=== PATIENT | female | born 1945 | race African-American/Black ===

== ENCOUNTER 2019-02-07 17:00 | Emergency (ER) | payer OTHER ==
[~2019-02-07] VITALS: Ht 170.2 cm; Wt 95.3 kg
[~2019-02-07 17:00] MED LIST: APAP500 PO; ASPIRIN325 PO; AUGMENTIN 875875 M1 PO; CARVEDILOL25 MG PO; CIPROFLOXACIN500 M1 PO; COLACE100 MG PO; COZAAR 50 MG TA50 M1 PO; DITROPAN XL10 MG PO; EFFIENT10 MG PO; ESTRACE1 MG PO; ESTRACE2 MG PO; GLUCOPHAGE500 MG PO; HYDROCHLOROTHIA25 M1 PO; HYDROCODON-ACE1 EAC7 PO; LANTUS SQ; MOBIC15 MG PO; MOBIC7.5 M1 PO; NEURONTIN 300300 M1 PO; OXYBUTYNIN CHLO10 MG PO; PRILOSEC 20 MG20 MG PO; PRILOSEC40 MG PO; SIMVASTATIN40 MG PO; SLOW FE 160MG160 MG PO; TYLENOL EX-STR500 M2 PO; VALIUM2 MG PO; VALSARTAN160 MG PO
[2019-02-07] MEDS ORDERED: NAPROSYN500 MG PO (18:34)
[2019-02-07 18:39] VITALS: BP 201/95
== END 2019-02-07 18:57 | disposition home or self-care (01) ==
LOC: ER 17:00
DX: S80.01XA Contusion of right knee, initial encounter (principal); Z23 Encounter for immunization; E11.9 Type 2 diabetes mellitus without complications; K21.9 Gastro-esophageal reflux disease without esophagitis; I10 Essential (primary) hypertension; E78.00 Pure hypercholesterolemia, unspecified; Z90.710 Acquired absence of both cervix and uterus; Z90.49 Acquired absence of other specified parts of digestive tract; W01.0XXA Fall on same level from slipping, tripping and stumbling without subsequent striking against object, initial encounter; Y93.89 Activity, other specified; Y92.098 Other place in other non-institutional residence as the place of occurrence of the external cause; Y99.8 Other external cause status

== ENCOUNTER → 2019-02-18 | Outpatient (CLI) | payer OTHER ==
[~2019-02-18] MED LIST changes: +NAPROSYN500 MG PO
--- NOTE | 2019-02-18 14:49 | EKG ---
[place] [address] [facility] [place] [place] [address] ELECTROCARDIOGRAM REPORT Name: LUCIANA MARINELLI Room #: REG CLARA Carrera#: [id number] ������������������ Admission: 02/18/19 ������������������ Attend Phys: BONNIE Chapman Discharge: ������������������ Date of : 41 Report #: [id number] ����������������������������������������������������������������� [id number] THIS REPORT FOR: //name// [facility] Test Date: 2019-02-18 Test Time: 12:23:29 Pat Name: LUCIANA MARINELLI Department: Room: Gender: F Cube Cutter: Compa FORD : 1945 Requested By: Annelise Don Order Number: [id number] MD: Lenard Coronado Measurements Intervals [place] Rate: 74 P: 63 PA: 187 QRS: 4 QRSD: 96 T: 99 QT: 384 QTc: 426 Interpretive Statements Sinus rhythm Anterior infarct, old Nonspecific T abnormalities, lateral leads Compared to ECG 11/05/2013 07:38:20 Myocardial infarct finding now present T-wave abnormality now present Left ventricular hypertrophy no longer present Early repolarization no longer present Electronically Signed On 02-18-2019 14:48:49 CDT by Lenard Coronado [email or web address] ��������������������������������������������� <ELECTRONICALLY SIGNED> ���������������������������������������� By: Lenard Coronado MD ��������������������������������������������� 02/18/19 1448 1223 1223 Lenard Coronado MD /EPI
== END ==
LOC: CV 08:39 → SEN 08:39
DX: I10 Essential (primary) hypertension (principal)

== ENCOUNTER → 2019-03-04 | Outpatient (CLI) | payer OTHER | LOC: SEN 10:15 | DX: I10 Essential (primary) hypertension (principal); E11.9 Type 2 diabetes mellitus without complications; R32 Unspecified urinary incontinence; I25.10 Atherosclerotic heart disease of native coronary artery without angina pectoris; K21.9 Gastro-esophageal reflux disease without esophagitis; E78.00 Pure hypercholesterolemia, unspecified; Z79.4 Long term (current) use of insulin; Z82.49 Family history of ischemic heart disease and other diseases of the circulatory system; Z79.899 Other long term (current) drug therapy; Z88.8 Allergy status to other drugs, medicaments and biological substances ==

== ENCOUNTER → 2019-06-13 | Outpatient (CLI) | payer OTHER | LOC: SEN 12:44 | DX: I25.10 Atherosclerotic heart disease of native coronary artery without angina pectoris (principal); I10 Essential (primary) hypertension; E78.5 Hyperlipidemia, unspecified; E11.9 Type 2 diabetes mellitus without complications; N32.81 Overactive bladder ==

== ENCOUNTER → 2019-06-27 | Outpatient (CLI) | payer OTHER | LOC: SEN 12:42 | DX: E11.9 Type 2 diabetes mellitus without complications (principal); I12.9 Hypertensive chronic kidney disease with stage 1 through stage 4 chronic kidney disease, or unspecified chronic kidney disease; N18.3 Chronic kidney disease, stage 3 (moderate) ==

== ENCOUNTER → 2019-07-11 | Outpatient (CLI) | payer OTHER | LOC: SEN 12:34 | DX: E11.9 Type 2 diabetes mellitus without complications (principal); I10 Essential (primary) hypertension ==

== ENCOUNTER → 2019-08-08 | Outpatient (CLI) | payer OTHER | LOC: SEN 10:14 | DX: I10 Essential (primary) hypertension (principal); G30.9 Alzheimer's disease, unspecified; E11.9 Type 2 diabetes mellitus without complications; I25.10 Atherosclerotic heart disease of native coronary artery without angina pectoris; F02.80 Dementia in other diseases classified elsewhere, unspecified severity, without behavioral disturbance, psychotic disturbance, mood disturbance, and anxiety; Z90.710 Acquired absence of both cervix and uterus; Z79.899 Other long term (current) drug therapy; Z79.4 Long term (current) use of insulin ==

== ENCOUNTER → 2019-09-05 | Outpatient (CLI) | payer OTHER | LOC: SEN 10:17 | DX: Z76.0 Encounter for issue of repeat prescription (principal); I25.10 Atherosclerotic heart disease of native coronary artery without angina pectoris; E11.9 Type 2 diabetes mellitus without complications; K21.9 Gastro-esophageal reflux disease without esophagitis; I10 Essential (primary) hypertension; I25.2 Old myocardial infarction ==

== ENCOUNTER → 2019-12-19 | Outpatient (CLI) | payer OTHER | LOC: SJCVC 11:14 | DX: I25.10 Atherosclerotic heart disease of native coronary artery without angina pectoris (principal); R94.31 Abnormal electrocardiogram [ECG] [EKG]; E78.00 Pure hypercholesterolemia, unspecified; E11.9 Type 2 diabetes mellitus without complications; G30.1 Alzheimer's disease with late onset; F02.80 Dementia in other diseases classified elsewhere, unspecified severity, without behavioral disturbance, psychotic disturbance, mood disturbance, and anxiety; I10 Essential (primary) hypertension; K21.9 Gastro-esophageal reflux disease without esophagitis; I25.2 Old myocardial infarction; Z79.899 Other long term (current) drug therapy; Z79.4 Long term (current) use of insulin ==

== ENCOUNTER → 2020-01-14 | Outpatient (CLI) | payer OTHER | LOC: SJCVCIMAG 08:04 | DX: I34.0 Nonrheumatic mitral (valve) insufficiency (principal); I11.9 Hypertensive heart disease without heart failure; I25.10 Atherosclerotic heart disease of native coronary artery without angina pectoris; E78.5 Hyperlipidemia, unspecified; E11.9 Type 2 diabetes mellitus without complications; Z79.4 Long term (current) use of insulin; Z88.8 Allergy status to other drugs, medicaments and biological substances; Z98.61 Coronary angioplasty status ==

== ENCOUNTER → 2020-07-22 | Outpatient (CLI) | payer OTHER | LOC: SJCVC 11:00 | PROVIDERS: ATTEND Internal Medicine Cardiovascular Disease | DX: I25.10 Atherosclerotic heart disease of native coronary artery without angina pectoris (principal); R94.31 Abnormal electrocardiogram [ECG] [EKG]; I10 Essential (primary) hypertension; E78.00 Pure hypercholesterolemia, unspecified; E11.9 Type 2 diabetes mellitus without complications; I25.2 Old myocardial infarction; Z79.4 Long term (current) use of insulin; Z79.899 Other long term (current) drug therapy ==

== ENCOUNTER 2020-09-25 02:30 | Inpatient (IN) | payer OTHER ==
[~2020-09-25] VITALS: Ht 170.2 cm; Wt 93.4 kg
--- NOTE | ~2020-09-25 | HC ---
[facility] [place] [address] CONSULTATION Name: LUCIANA MARINELLI Room #: 435-P [facility] IN M.R.#: [id number] Admission: 09/25/20 Attend Phys: Fox Barclay MD Discharge: 09/28/20 Date of : 41 Report #: [id number] THIS REPORT FOR: cc: Dwaine Wyatt Lance A. RNP Stephens, Thad A. MD ~ DATE OF SERVICE: 09/25/2020 WOUND CARE CONSULTATION PERSONAL PHYSICIAN: Fox Barclay MD CHIEF COMPLAINT: Buttock ulcer. HISTORY OF PRESENT ILLNESS: This is a 75-year-old female who was admitted for altered mental status and fatigue over the past several days. According to the family she has been having low-grade fevers and chills given that the patient initially denied this. The patient was admitted for IV fluids and rule out COVID testing. Upon admission, the patient was noted to have a right gluteal decubitus ulcer. We have been asked to follow the patient for this. PAST MEDICAL HISTORY: Significant for hypertension, diabetes mellitus, hypercholesterolemia, previous hysterectomy, gastroesophageal reflux disease. CURRENT MEDICATIONS: Multiple, I reviewed the patient's medication list. DRUG ALLERGIES: None. SOCIAL HISTORY: The patient does not smoke or drink alcohol. FAMILY HISTORY: Not pertinent to current medical condition. REVIEW OF SYSTEMS: CONSTITUTIONAL: The patient denies fevers or chills. However, according to the family, she has been having them over the past 24 hours. NEUROLOGIC: The patient has overall generalized weakness and fatigue, but no isolated weakness in arms or legs. EYES: No complaints. ENT: No complaints. CARDIAC: The patient has mild lower extremity edema with no chest pain or palpitation. RESPIRATORY: The patient denies shortness of breath, but has a cough, but no wheezes. GASTROINTESTINAL: The patient denies nausea, vomiting, abdominal pain. [facility] [address] [place] [address] CONSULTATION Name: LUCIANA MARINELLI Room #: 435-P [facility]#: [id number] Admission: 09/25/20 Attend Phys: Fox Barclya MD Discharge: 09/28/20 Date of : 41 Report #: [id number] GENITOURINARY: The patient denies urgency or frequency. MUSCULOSKELETAL: No complaints. SKIN: There is a decubitus ulcer in the right buttock. PHYSICAL EXAMINATION: VITAL SIGNS: Stable. The patient is afebrile. GENERAL: This is an alert and oriented x 1 person, but not place or time female who is in no acute distress. HEENT: Normocephalic, atraumatic. Mucous membranes are somewhat dry. Pupils are round. Sclerae white. NECK: Supple, without JVD. LUNGS: Slightly diminished breath sounds heard throughout. Occasional scattered wheeze. HEART: Regular. ABDOMEN: Obese, soft, nontender. EXTREMITIES: Evaluation of the right buttock reveals a stage 3 decubitus ulcer, which is clean and granulating. There are no signs of overt infection. Periwound is otherwise intact. There is minimal amount of serosanguineous drainage noted without odor, no tunneling or undermining. EXTREMITIES: The patient moves all extremities without difficulty. Bilateral heels are intact. NEUROLOGIC: Cranial nerves 2-12 are grossly intact. Motor and sensory are grossly intact. LABORATORY DATA: Laboratory values; BUN 36, creatinine 2.5, glucose was 415. White count 12.5, hemoglobin 9.8. Chest x-ray showed no signs of any obvious pulmonary infiltrates. IMPRESSION: 1. Stage 3 decubitus ulcer, right buttock without signs of overt infection. 2. Diabetes mellitus type 2. 3. Hypertension. 4. Hyperlipidemia. 5. Generalized debility. PLAN: We will start the patient with the Z-Guard to the decubitus ulcer twice daily and p.r.n. We will have the patient on low air loss mattress, have turned every 2 hours. Hypertension, diabetes and hyperlipidemia will be managed by the hospitalist. We will utilize physical and occupational therapy as the patient is able for generalized debility. We [place] [address] CONSULTATION Name: LUCIANA MARINELLI Room #: 435-P DIS IN M.R.#: [id number] Admission: 09/25/20 Attend Phys: Fox Barclay MD Discharge: 09/28/20 Date of : 41 Report #: [id number] oral protein supplementation for healing. We will continue to follow the patient. By: 1117 1803 Pavel Jorgensen MD /nt
[2020-09-25 02:32] VITALS: BP 147/55
[2020-09-25 02:58] LABS: ABSOLUTE NEUTROPHILS 11.7 thou/uL (1.4-8.2); BASOPHILS 0.2 % (0.0-2.0); EOSINOPHILS 0.1 % (0.0-3.0); HEMATOCRIT 29.5 % (37.0-47.0); HEMOGLOBIN 9.8 gm/dL (12.0-15.0); LYMPHOCYTES 1.2 % (24.0-44.0); MCH 27.6 pg (26.0-34.0); MCV 83.5 fL (80.0-100.0); MONOCYTES 4.7 % (1.0-8.0); PLATELET COUNT 130 thou/uL (150-400); POLYS 93.8 % (36.0-66.0); RBC 3.53 mil/uL (4.20-5.00); RDW 13.8 % (10.5-14.5); WBC 12.5 thou/uL (4.0-11.0)
[2020-09-25 03:01] LABS: CALCIUM 8.3 mg/dL (8.5-10.1); CREATININE 2.5 mg/dL (0.6-1.0); POTASSIUM 5.3 mmol/L (3.5-5.1)
[2020-09-25 03:02] LABS: MAGNESIUM 1.6 mg/dL (1.8-2.4)
[2020-09-25 03:26] LABS: URINE BILIRUBIN NEGATIVE (Negative); URINE BLOOD 2+ (Negative); URINE CLARITY SL CLOUDY; URINE COLOR YELLOW; URINE GLUCOSE-RANDOM* 3+ (Negative); URINE KETONES NEGATIVE (Negative); URINE LEUKOCYTES-REFLEX NEGATIVE (Negative); URINE NITRITE-REFLEX NEGATIVE (Negative); URINE PROTEIN (DIPSTICK) 1+ (Negative); URINE SPECIFIC GRAVITY 1.015 (1.005-1.035); URINE UROBILINOGEN 0.2 E.U./dl (0.2-1.0)
[2020-09-25 04:08] LABS: CASTS None Seen /LPF (None Seen); MUCUS None Seen strn/LPF (None Seen); SQUAMOUS None Seen /LPF (0-3); URINE WBC-REFLEX 0-5 Rare /HPF (0-5)
[2020-09-25 04:09] LABS: BACTERIA-REFLEX >30 Many /HPF (None Seen); CRYSTALS None Seen /LPF (None Seen); URINE RBC 0-2 Rare /HPF (0-2)
[2020-09-25 06:00] VITALS: BP 136/61
--- NOTE | 2020-09-25 06:07 | NUR ---
ATTEMPTED TO CALL REPORT AT 0607 TO 4S, NO ANSWER.
[2020-09-25 06:29] VITALS: BP 136/61
[2020-09-25 07:06] VITALS: BP 140/58
--- NOTE | 2020-09-25 10:03 | NUR ---
assumed care at 0700. ax03. pt is aware of self, situation, and place. pt is unaware of time. pt is very alert and slightly sleepy. Pt states that she did not have much of sleep. fall precaution. call light within reach. pt does not have much of appetite. Blood glucose was high this morning as 344 and was given insulin. pt denies soa or pain. pt complains of nausea. Wound care is consulted due to pressure sore found on right buttock. VSS. will continue to monitor for pain.
--- NOTE | 2020-09-25 10:41 | NUR ---
WOUND CONSULT; ASSESSMENT OF THE RIGHT BUTTOCK. A WOUND THE PATIENT HAS HAS FOR A 3-4 MONTHS. THE WOUND IS TENDER WITH SOME INDURATION. THE PATIENT IS HERE RELATED TO A UTI. THE PATIENTS SON IS AT THE BEDSIDE. I EDUCATED THE PATIENT ON PRESSURE REDUCTION MEASURES/OFFLOADING. RECOMMENDATION; CONSULT DR MERLENE BARTLETT. DISCUSSED WITH PAVAN
[2020-09-25] MEDS ORDERED: PLAVIX 75 MG TA75 MG PO (10:54)
[2020-09-25] MEDS ORDERED: BENICAR40 MG PO (10:54)
[2020-09-25] MEDS ORDERED: ZETIA10 MG PO (10:55)
[2020-09-25] MEDS ORDERED: ARICEPT10 M1 PO (10:55)
[2020-09-25] MEDS ORDERED: CRESTOR40 MG PO (10:55)
[2020-09-25] MEDS ORDERED: FAMOTIDINE 20 M20 MG PO (10:56)
[2020-09-25] MEDS ORDERED: TOPROL XL25 MG PO (10:57)
--- NOTE | 2020-09-25 11:58 | EKG ---
[facility] [place] [address] ELECTROCARDIOGRAM REPORT Name: LUCIANA MARINELLI Room #: 435-P ADM IN M.R.#: [id number] Admission: 09/25/20 Attend Phys: Fox Barclay MD Discharge: Date of : 41 Report #: [id number] THIS REPORT FOR: cc: Dwaine Wyatt Lance A. 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: jermaine : 1945 Requested By: Raul Che Order Number: [id number] MD: Dylan Preciado Measurements Intervals [place] Rate: 99 P: 89 AL: 188 QRS: -52 QRSD: 132 T: 115 QT: 372 QTc: 478 Interpretive Statements Sinus rhythm Left bundle branch block Compared to ECG 02/18/2019 12:23:29 Left bundle-branch block now present T-wave abnormality no longer present Electronically Signed On 09-25-2020 11:57:58 CELLAR SUPERVISOR by Dylan Preciado [email or web address] <ELECTRONICALLY SIGNED> By: Dylan Preciado MD, FACC 09/25/20 1157 6 Dylan Preciado MD, FACC /EPI
--- NOTE | 2020-09-25 14:19 | NUR ---
Jeremy admits with fatigue/UTI. Patients covid test pending sp with son Rg patient [facility] in [facility]. All needs on one level. Patient uses a cane for ambulation both in apt and community. Patient does have a walker if needed. Son noted patient was not taking her medications or eating well. Son took patient to [place] where he resides and reports monitored her medications. He and patient returned to area. His sister was in process of arranging home health and patient became weak and needed admit to hospital. Son reports have been ion since the Sep 23. Son has casemgt number. He plans to give to sister. Reviewed home health and possible rehab need. Therapy evals in process. Casemgt following. Anticipate no weekend dc.
[2020-09-25 16:20] VITALS: BP 119/44
[2020-09-25 20:17] VITALS: BP 104/49
--- NOTE | 2020-09-26 00:51 | NUR ---
ASSUMED PT CARE AT 1900.PT WAS OBSERVED SLEEPING AT SHIFT CHANGE.PT REPOSITIONED WHILE IN BED.HOUSE SUP CALLED AND STATED THAT THE PT NEEDS TO BE CLEARED FOR COVID FOR HER TO STAY ON THE UNIT.RENETTA GARZA NOTIFIED,PT CLEARED.LOW GRADE TEMP NOTED THIS SHIFT,TYLENOL ADMINISTERED,EFFECTIVE.Z GUARD TO HER BUTTOCKS.CALL LIGHT WITHIN REACH.
[2020-09-26 04:00] VITALS: BP 113/57
[2020-09-26 05:23] LABS: HEMATOCRIT 27.9 % (37.0-47.0); HEMOGLOBIN 9.1 gm/dL (12.0-15.0); MCH 27.5 pg (26.0-34.0); MCHC 32.5 g/dL (28.0-37.0); MCV 84.6 fL (80.0-100.0); RBC 3.3 mil/uL (4.20-5.00); RDW 13.7 % (10.5-14.5); WBC 12.2 thou/uL (4.0-11.0)
[2020-09-26 05:29] LABS: CALCIUM 8.5 mg/dL (8.5-10.1); CREATININE 2.5 mg/dL (0.6-1.0)
[2020-09-26 07:17] VITALS: BP 138/58
--- NOTE | 2020-09-26 10:33 | NUR ---
ASSUMED CARE AT 0700. PT IS MORE ALERT THAN YESTERDAY. PT IS TALKATIVE AND PLEASANT. PT IS AWARE OF SELF, SITUATION, TIME, LOCATION. PT DENIES ANY SOA, PAIN, N/V. PT IS HAVING MORE OF AN APPETITE. PT IS EATING BETTER THIS MORNING. PT ATE AT LEAST 30% OF FOOD. FALL PRECAUTION. CALL LIGHT WITHIN REACH. PT HAS URINATED ONCE THIS MORNING. IV WENT BAD, SO D/C IV ON RIGHT HAND. WILL REPLACE IV. PT TEMPERATURE IS 98.8 WHICH IS GOING DOWN FROM YESTERDAY. PRESSURE SORE LOOKS THE SAME YESTERDAY WHICH SHOWS NO REDNESS OR SWELLING. PT IS ON CARB CONTROLLED. SCD HOSE ARE IN PLACE.
[2020-09-26 16:07] VITALS: BP 106/47
--- NOTE | 2020-09-26 18:39 | NUR ---
pt needed to urinate. i assist pt with urination. i noticed that pt is wiping front to back and back to front. educated patient and family member the proper way to wipe after using the restroom and demonstrate a verbal discussion and repeat the steps back to me. pt understands but she is forgetful.
[2020-09-26 19:09] VITALS: BP 141/60
--- NOTE | 2020-09-27 01:52 | NUR ---
PT MORE AWAKE THIS SHIFT COMPARED TO THE PREVIOUS DAY.PT SON HERE AT SHIFT CHANGE. PT REPOSITIONED WHILE IN BED.PT AFEBRILE SO FAR.Z GUARD TO HER BUTTOCK. PT SLEEPING ON HER BED AT THIS TIME.CALL LIGHT WITHIN REACH.
[2020-09-27 04:53] VITALS: BP 112/52
[2020-09-27 05:34] LABS: HEMOGLOBIN 8.8 gm/dL (12.0-15.0); MCH 28.3 pg (26.0-34.0); MCHC 33.9 g/dL (28.0-37.0); MCV 83.6 fL (80.0-100.0); RBC 3.11 mil/uL (4.20-5.00); RDW 13.7 % (10.5-14.5)
[2020-09-27 06:17] LABS: CALCIUM 7.9 mg/dL (8.5-10.1); CREATININE 2.4 mg/dL (0.6-1.0); POTASSIUM 5.3 mmol/L (3.5-5.1)
[2020-09-27 19:57] VITALS: BP 166/73
[2020-09-28 04:41] VITALS: BP 132/65
--- NOTE | 2020-09-28 05:58 | NUR ---
ASSUMED PT CARE AT 1915. PT IS A&OX4. PT IS ON ROOM AIR. PT DENIES PAIN. ELY SOUND CLEAR. PT IS AFEBRILE. I ADMINISTERED TYLENOL. PT STATES THAT SHE FEELS FINE. PT HAD RIGHT FOREARM IV THAT SHE PULLED OUT AND WAS CONFUSED ABOUT DOING. MYSELF AND THE CHARGE TRIED TO PLACE IV- UNSUCCESSFUL. NO IV ACCESS AT THE TIME. PT GETS Dee Dee BRO ON HER BOTTOM. WILL CONTINUE TO MONITOR.
[2020-09-28 07:00] VITALS: BP 113/50
[2020-09-28] MEDS ORDERED: LANTUS SUBQ (07:50)
[2020-09-28] MEDS ORDERED: CEFDINIR300 MG PO (07:51)
--- NOTE | 2020-09-28 07:55 | NUR ---
ASSUMED CARE AT 0700. AX0 X 4. WHEN I ENTERED, THE PATIENT WAS SLEEPING. SCD HOSE ARE IN PLACE. VSS. FALL PRECAUTION. CALL LIGHT WITHIN REACH. PT IS ON DIET CARB CONTROL DIABETIC. PT DENIES ANY PAIN, N/V, OR DISCOMFORT. AFTER SPEAKING WITH DOCTOR, DOCTOR HAS ORDER ANTIBIOTIC TO BE HANG AT 1200 INSTEAD OF 1800. PT HAS A DISCHARGE ORDER FOR TODAY. WILL APPLY Z GUARD ON PATIENT RIGHT BUTTOCK. WILL CONTINUE TO MONITOR FOR PAIN OR SOA.
--- NOTE | 2020-09-28 11:42 | NUR ---
WHEN ASSESSING FOR IV, THERE WAS NO D/C OF IV OF RIGHT FOREARM. IV INSERTED AT 1142. IV IS INTACT AND WITHOUT REDNESS OR SWELLING.
[2020-09-28 12:40] VITALS: BP 113/50
[2020-09-28 12:42] VITALS: BP 113/50
[2020-09-28 12:50] VITALS: BP 113/50
--- NOTE | 2020-09-28 14:19 | NUR ---
melissa arranged [facility]. jeffrey w/lester at [facility] who agreed to accept pt. lester informed that pt will d/c to her dtr home. melissa and lester confirmed dmitri's address in [facility]. pt son, jaida at bedside. pt had no preference for hh, wanted hh in network w/her insurance. jaida and pt informed pt this [facility] will contact pt to arrange visits. dmitri called [facility] to make sure we had the correct address. dmitri confirmed address.
--- NOTE | 2020-09-28 16:19 | NUR ---
pt was discharged and is understanding the next steps after leaving hospital. pt understands to apply z guard to pressure sore on r. buttock. Pt understands to wipe front to back after urination. pt is leaving with her son, brendan. pt is aware that next appointment will be with dr. jim
== END 2020-09-28 14:31 | disposition home health service (06) | DRG 871 ==
LOC: ER 02:30 → 4S 04:47 → EROBS 04:47 → 4S 06:22
PROVIDERS: Emergency Medicine; ADMIT Family Medicine; ATTEND Family Medicine
DX: A41.9 Sepsis, unspecified organism (principal); L89.313 Pressure ulcer of right buttock, stage 3; N39.0 Urinary tract infection, site not specified; N17.9 Acute kidney failure, unspecified; E46 Unspecified protein-calorie malnutrition; B96.20 Unspecified Escherichia coli [E. coli] as the cause of diseases classified elsewhere; E11.65 Type 2 diabetes mellitus with hyperglycemia; K21.9 Gastro-esophageal reflux disease without esophagitis; E78.00 Pure hypercholesterolemia, unspecified; R53.81 Other malaise; E78.5 Hyperlipidemia, unspecified; I12.9 Hypertensive chronic kidney disease with stage 1 through stage 4 chronic kidney disease, or unspecified chronic kidney disease; E11.22 Type 2 diabetes mellitus with diabetic chronic kidney disease; N18.9 Chronic kidney disease, unspecified; Z20.828 Contact with and (suspected) exposure to other viral communicable diseases; Z90.49 Acquired absence of other specified parts of digestive tract; Z90.710 Acquired absence of both cervix and uterus; Z79.899 Other long term (current) drug therapy
CPT/HCPCS: 10195

== ENCOUNTER 2020-11-14 10:47 | Emergency (ER) | payer OTHER ==
[~2020-11-14] VITALS: Ht 167.6 cm; Wt 93.0 kg
[~2020-11-14 10:47] MED LIST changes: +ARICEPT10 M1 PO; +BENICAR40 MG PO; +CEFDINIR300 MG PO; +CRESTOR40 MG PO; +FAMOTIDINE 20 M20 MG PO; +LANTUS SUBQ; -NEURONTIN 300300 M1 PO; +NEURONTIN 300M300 M2 PO; +PLAVIX 75 MG TA75 MG PO; +TOPROL XL25 MG PO; +ZETIA10 MG PO
[2020-11-14 12:24] LABS: ABSOLUTE NEUTROPHILS 3.1 thou/uL (1.4-8.2); BASOPHILS 0.7 % (0.0-2.0); EOSINOPHILS 4.4 % (0.0-3.0); HEMATOCRIT 30.8 % (37.0-47.0); LYMPHOCYTES 17.6 % (24.0-44.0); MCH 27.6 pg (26.0-34.0); MCHC 32.5 g/dL (28.0-37.0); MCV 84.8 fL (80.0-100.0); MONOCYTES 9.2 % (1.0-8.0); PLATELET COUNT 176 thou/uL (150-400); POLYS 68.1 % (36.0-66.0); RBC 3.63 mil/uL (4.20-5.00); RDW 14.6 % (10.5-14.5); WBC 4.6 thou/uL (4.0-11.0)
[2020-11-14 12:34] LABS: ANION GAP 10 mmol/L (7-16); BUN 37 mg/dL (7-18); CALCIUM 9.3 mg/dL (8.5-10.1); CHLORIDE 105 mmol/L (98-107); CO2 23 mmol/L (21-32); CREATININE 2.2 mg/dL (0.6-1.0); GLUCOSE 366 mg/dL (74-106); SODIUM 138 mmol/L (136-145)
[2020-11-14 12:41] LABS: ALBUMIN 3.2 g/dL (3.4-5.0); SALICYLATE < 2.8 mg/dL (2.8-20.0); SGOT 17 U/L (15-37); SGPT 19 U/L (14-59); TOTAL BILIRUBIN 0.3 mg/dL (0.2-1.0); TOTAL PROTEIN 7.5 g/dL (6.4-8.2)
[2020-11-14 13:06] LABS: URINE BILIRUBIN NEGATIVE (Negative); URINE BLOOD NEGATIVE (Negative); URINE CLARITY CLEAR; URINE COLOR YELLOW; URINE GLUCOSE-RANDOM* 3+ (Negative); URINE KETONES NEGATIVE (Negative); URINE LEUKOCYTES-REFLEX NEGATIVE (Negative); URINE NITRITE-REFLEX NEGATIVE (Negative); URINE PROTEIN (DIPSTICK) NEGATIVE (Negative); URINE UROBILINOGEN 0.2 E.U./dl (0.2-1.0)
[2020-11-14 13:16] LABS: AMP/METHAMP Negative (Negative); BARBITURATES Negative (Negative); BENZODIAZEPINES Negative (Negative); COCAINE Negative (Negative); METHADONE Negative (Negative); OPIATES Negative (Negative); PCP Negative (Negative)
[2020-11-14] MEDS ORDERED: LEVEMIR100 UNIT/2 SUBQ (13:23)
[2020-11-14] MEDS ORDERED: DULCOLAX STOOL100 M1 PO (13:25)
[2020-11-14] MEDS ORDERED: IRON325 M1 PO (13:26)
[2020-11-15 02:56] VITALS: BP 175/82
--- NOTE | 2020-11-15 08:52 | EKG ---
[place] [address] [facility] [place] [address] ELECTROCARDIOGRAM REPORT Name: LUCIANA MARINELLI [id number] Admission: 11/14/20 Attend Phys: Discharge: 11/15/20 Date of : 41 Report #: [id number] [facility] ED Test Date: 2020-11-14 Test Time: 12:43:09 Pat Name: LUCIANA MARINELLI Department: Room: Gender: F Planning Aide: eric : 1945 Requested By: Reyna Hernandez Order Number: [id number] MD: Dylan Preciado Measurements Intervals [place] Rate: 75 P: 32 OK: 204 QRS: -32 QRSD: 95 T: 101 QT: 380 QTc: 425 Interpretive Statements Sinus rhythm LVH with secondary repolarization abnormality Inferior infarct, old Anterior infarct, old Compared to ECG 09/25/2020 02:37:49 Left ventricular hypertrophy now present Early repolarization now present Myocardial infarct finding now present Left bundle-branch block no longer present Electronically Signed On 11-15-2020 8:51:57 SUPERVISOR STONE by Dylan Preciado [email or web address] <ELECTRONICALLY SIGNED> By: Dylan Preciado MD, [facility] 11/15/20 0851 1243 1243 Dylan Preciado MD, [facility] /EPI
== END 2020-11-15 02:57 | disposition short-term general hospital (02) ==
LOC: ER 10:47
PROVIDERS: Physician Assistant
DX: F03.90 Unspecified dementia, unspecified severity, without behavioral disturbance, psychotic disturbance, mood disturbance, and anxiety (principal); R45.1 Restlessness and agitation; E11.9 Type 2 diabetes mellitus without complications; I10 Essential (primary) hypertension; K21.9 Gastro-esophageal reflux disease without esophagitis; E78.00 Pure hypercholesterolemia, unspecified; Z90.711 Acquired absence of uterus with remaining cervical stump; Z90.49 Acquired absence of other specified parts of digestive tract; Z79.899 Other long term (current) drug therapy